=== PATIENT | female | born 1950 | race Caucasian/White ===

== ENCOUNTER 2016-09-23 19:56 | Inpatient (IN) | payer MEDICARE ==
[2016-09-23] MEDS ORDERED: ONDANSETRON HCL INJ/PF 4 MG/2 ML SDV IV ONE (20:16)
[2016-09-23] MEDS ORDERED: FAMOTIDINE INJ/PF 20 MG/2 ML SDV IV ONE (20:16)
--- NOTE | 2016-09-23 20:19 | ER Document Report ---
ED GI/ - General Stated Complaint: NAUSEA,VOMITING,WEAKNESS Time seen by provider: 20:16 Mode of Arrival: Medic Information source: Patient, Relative - - HPI Patient complains to provider of: Abdominal pain, Diarrhea, Vomiting Onset: Yesterday Timing/Duration: Gradual, Persistent, Worse Quality of pain: Achy Severity at maximum: Moderate Severity in ED: Moderate Pain Level: 3 Location: Other - Diffuse Associated symptoms: Chills, Diarrhea, Lightheaded, Nausea, Vomiting Exacerbated by: Denies Relieved by: Denies Similar symptoms previously: No Recently seen / treated by doctor: No Notes: 09/23/16 20:17 Patient is a 66-year-old female who is visiting from [place] who presents to the emergency room via EMS for generalized weakness, nausea, vomiting and diarrhea, with decreased responsiveness and hypotension on arrival, patient reports diffuse abdominal pain and tenderness, no sick contacts, no questionable food intake, no fevers, no dysuria, denies blood in stool or vomit , symptoms started yesterday - Related Data Allergies/Adverse Reactions: Sulfa (Sulfonamide Antibiotics) Allergy (Verified 09/23/16 22:32) Past Medical History - General Information source: Patient, Relative - Social History Smoking Status: Former Smoker Family History: Reviewed & Not Pertinent Review of Systems - Review of Systems Constitutional: See HPI EENT: No symptoms reported Cardiovascular: No symptoms reported Respiratory: No symptoms reported Gastrointestinal: See HPI Genitourinary: No symptoms reported Female Genitourinary: No symptoms reported Musculoskeletal: No symptoms reported Skin: No symptoms reported Hematologic/Lymphatic: No symptoms reported Neurological/Psychological: No symptoms reported -: Yes All other systems reviewed and negative Physical Exam - Vital signs Vitals: Resp BP Pulse Ox 27 H 116/58 L 93 09/23/16 20:39 09/23/16 20:39 09/23/16 20:39 Interpretation: Hypotensive, Hypoxic - General General appearance: Alert In distress: Moderate - HEENT Head: Normocephalic, Atraumatic Eyes: Normal Conjunctiva: Normal Extraocular movements intact: Yes Eyelashes: Normal Pupils: PERRL Mucous membranes: Dry - Respiratory Respiratory status: No respiratory distress Chest status: Nontender Breath sounds: Normal Chest palpation: Normal - Cardiovascular Rhythm: Regular Heart sounds: Normal auscultation Murmur: No - Abdominal Inspection: Normal Distension: Distended Bowel sounds: Normal Tenderness: Tender - Diffuse Organomegaly: No organomegaly - Back Back: Normal, Nontender - Extremities General upper extremity: Normal inspection, Nontender, Normal color, Normal ROM , Normal temperature General lower extremity: Normal inspection, Nontender, Normal color, Normal ROM , Normal temperature. No: Jazmyn's sign - Neurological Neuro grossly intact: Yes Cognition: Normal Orientation: AAOx4 Aurora Coma Scale Eye Opening: Spontaneous Jhony Coma Scale Verbal: Oriented Aurora Coma Scale Motor: Obeys Commands Aurora Coma Scale Total: 15 Speech: Normal Motor strength normal: LUE, RUE, LLE, RLE Sensory: Normal - Psychological Associated symptoms: Normal affect, Normal mood - Skin Skin Temperature: Warm Skin Moisture: Dry Skin Color: Pale Course - Re-evaluation Re-evalutation: 09/24/16 04:15 Patient is resting comfortably, she reports having some crampy abdominal pain, blood pressure has been trending downward slightly, additional IV fluids have been ordered, she does report that she sleeps with a C Pap machine regularly for sleep apnea, therefore BiPAP has been ordered, patient has been discussed with the hospitalist who agrees to admit for further evaluation and treatment 09/24/16 05:50 Patient condition continued to deteriorate, lab values are actually worsened than previous, she is once again hypotensive, tachycardic and spot, surgical evaluation, central line placement 09/24/16 06:00 I was able to reach patient's Lukas, to let him know that patient's condition had deteriorated, he will come to the emergency room/hospital - Vital Signs Vital signs: Temp Pulse Resp BP Pulse Ox 97.2 F 90 27 H 88/23 L 96 09/23/16 21:57 09/23/16 23:41 09/24/16 04:32 09/24/16 04:32 09/24/16 05:58 - Laboratory Result Diagrams: 09/23/16 20:54 09/24/16 03:58 Laboratory results interpreted by me: 09/23/16 09/23/16 09/24/16 20:54 20:54 01:30 Hgb 10.7 L MCV 70 L MCH 20.3 L MCHC 29.1 L RDW 19.3 H VBG pH VBG HCO3 Chloride 110 H Carbon Dioxide 14 L BUN 54 H Creatinine 2.35 H Est GFR ( Amer) 25 L Est GFR (Non-Af Amer) 21 L Glucose 154 H Magnesium Total Bilirubin Direct Bilirubin AST 90 H ALT 56 H Alkaline Phosphatase 335 H Creatine Kinase CK-MB (CK-2) Total Protein 5.8 L Albumin 2.7 L Urine Protein 100 H Urine Glucose (UA) 50 H Urine Ketones TRACE H 09/24/16 09/24/16 09/24/16 03:58 03:58 03:58 Hgb MCV MCH MCHC RDW VBG pH 7.07 L* VBG HCO3 11.6 L Chloride 113 H Carbon Dioxide 12 L BUN 59 H Creatinine 2.89 H Est GFR ( Amer) 20 L Est GFR (Non-Af Amer) 16 L Glucose 111 H Magnesium 3.0 H Total Bilirubin 2.6 H Direct Bilirubin 0.4 H AST 178 H ALT 177 H Alkaline Phosphatase 406 H Creatine Kinase 332 H CK-MB (CK-2) 13.60 H Total Protein 5.1 L Albumin 2.3 L Urine Protein Urine Glucose (UA) Urine Ketones - Diagnostic Test Radiology reviewed: Image reviewed, Reports reviewed - EKG Interpretation by Mi EKG shows normal: Sinus rhythm Rate: Normal Rhythm: NSR - Consults Dr Moss Time consulted: 05:08 Reason for consultation: 09/24/16 05:08 elevated liver enzymes, abdominal pain, sepsis Consulted provider: will come to ER - Transfer of Care Care transferred to following provider: Dr. Cooper Procedures - Intubation Orotracheal Time of Intubation: 05:53 Airway evaluation: Neck immobility Mallampati Classification: Class 3 Medications: Etomidate, Succinylcholine Intubation method: Orotracheal Equipment used: Glidescope ETT size: 7.5 ETT secured at: Teeth ETT secured at (cm): 24 Breath Sounds after Intubation: Equal End tidal CO2 confirmed: Yes Post Intubation Xray: Yes Intubation Complications: No complications Notes: 09/24/16 05:58 initial attampt unsuccessful, second attempt successful by Dr Packer Critical Care Note - Critical Care Note Total time excluding time spent on procedures (mins): 120 Comments: Patient with hypotension, requiring IV fluids, multiple re-evaluations and admission to the ICU Discharge - Discharge Clinical Impression: Nausea vomiting and diarrhea, Elevated liver enzymes, Gallstones Acute renal failure Qualifiers: Acute renal failure type: unspecified Qualified Code(s): N17.9 - Acute kidney failure, unspecified Hypotension Qualifiers: Hypotension type: unspecified hypotension type Qualified Code(s): I95.9 - Hypotension, unspecified Condition: Serious Disposition: ADMITTED INPATIENT Admitting Provider: Hospitalist Unit Admitted: ICU
[2016-09-23] MEDS: NORMAL SALINE 1000 ML 2,000 ML IV PRN (20:36)
[2016-09-23 21:06] LABS: ABSOLUTE LYMPHOCYTES (AUTO) 1.6 10^3/uL (0.5-4.7); ABSOLUTE MONOCYTES (AUTO) 0.7 10^3/uL (0.1-1.4); ABSOLUTE NEUT (AUTO) 5.9 10^3/uL (1.7-8.2); BASOPHILS % (AUTO) 0.2 % (0-2); HEMATOCRIT 36.8 % (36.0-47.0); HEMOGLOBIN 10.7 g/dL (12.0-15.5); LYMPHOCYTES % (AUTO) 19.8 % (13-45); MEAN CORPUSCULAR HEMOGLOBIN 20.3 pg (27.0-33.4); MEAN CORPUSCULAR HGB CONC 29.1 g/dL (32.0-36.0); MEAN CORPUSCULAR VOLUME 70 fl (80-97); MONOCYTES % (AUTO) 8.1 % (3-13); RED BLOOD COUNT 5.28 10^6/uL (3.72-5.28); RED CELL DISTRIBUTION WIDTH 19.3 % (11.5-14.0); SEGMENTED NEUTROPHILS % (AUTO) 71.9 % (42-78); WHITE BLOOD COUNT 8.2 10^3/uL (4.0-10.5)
[2016-09-23 21:27] LABS: ALANINE AMINOTRANSFERASE 56 U/L (9-52); ALBUMIN 2.7 g/dL (3.5-5.0); ALKALINE PHOSPHATASE 335 U/L (38-126); ANION GAP 19 (5-19); ASPARTATE AMINO TRANSFERASE 90 U/L (14-36); BILIRUBIN,TOTAL 1.1 mg/dL (0.2-1.3); BLOOD UREA NITROGEN 54 mg/dL (7-20); CARBON DIOXIDE 14 mmol/L (22-30); CHLORIDE 110 mmol/L (98-107); CREATINE KINASE 99 U/L (30-135); CREATININE RESULT 2.35 mg/dL (0.52-1.25); GLUCOSE 154 mg/dL (75-110); LIPASE 92.6 U/L (23-300); POTASSIUM 4.8 mmol/L (3.6-5.0); SODIUM 142.8 mmol/L (137-145); TOTAL PROTEIN 5.8 g/dL (6.3-8.2)
[2016-09-23 21:29] LABS: HGB HCT DIFFERENCE -4.7
[2016-09-23] MEDS ORDERED: NORMAL SALINE 1000 ML 1,000 ML IV PRN (21:33)
[2016-09-23] MEDS ORDERED: MORPHINE SULFATE 10 MG/ML INJ IV ONE (21:34)
[2016-09-23 21:38] LABS: CREATINE KINASE MB 3.72 ng/mL (<4.55)
[2016-09-23 21:40] LABS: TROPONIN I 0.09 ng/mL
--- NOTE | 2016-09-23 21:47 | EKG REPORT ---
SEVERITY:- ABNORMAL ECG - SINUS RHYTHM PROBABLE LEFT VENTRICULAR HYPERTROPHY : Confirmed by: Golden Rojas 23-Sep-2016 21:45:33
[2016-09-24 01:47] LABS: APPEARANCE,URINE CLOUDY; BILIRUBIN,URINE NEGATIVE (NEGATIVE); GLUCOSE, URINE 50 mg/dL (NEGATIVE); KETONES,URINE TRACE mg/dL (NEGATIVE); LEUKOCYTE ESTERASE,URINE NEGATIVE (NEGATIVE); NITRITE,URINE NEGATIVE (NEGATIVE); PROTEIN,URINE 100 mg/dL (NEGATIVE); URINE SPECIFIC GRAVITY 1.015; UROBILINOGEN,URINE NEGATIVE mg/dL (<2.0)
[2016-09-24] MEDS ORDERED: NORMAL SALINE 1000 ML 1,000 ML IV PRN ×2 (03:46→07:48)
[2016-09-24] MEDS: NORMAL SALINE 1000 ML 2,000 ML IV PRN (03:51)
[2016-09-24] MEDS ORDERED: FENTANYL CITRATE INJ/PF 100 MCG/2 ML AMPUL IV ONE (03:52)
[2016-09-24 04:25] LABS: VENOUS BLOOD BASE EXCESS -17.7 mmol/L; VENOUS BLOOD HCO3 11.6 mmol/L (20-32); VENOUS BLOOD PCO2 40.8 mmHg (35-63)
[2016-09-24 04:26] LABS: VENOUS BLOOD PH 7.07 (7.30-7.42)
[2016-09-24] MEDS ORDERED: SODIUM BICARBONATE 4.2% INJ (2.4 MEQ/5 ML) VIAL INJ ONE (04:30)
[2016-09-24] MEDS ORDERED: SODIUM BICARBONATE 8.4% INJ 50 MEQ/50 ML DISP.SYRIN IV ONE (04:34)
[2016-09-24] MEDS ORDERED: SODIUM BICARBONATE 8.4% INJ 50 MEQ/50 ML DISP.SYRIN ONE (04:35)
[2016-09-24 04:37] LABS: ALANINE AMINOTRANSFERASE 177 U/L (9-52); ALBUMIN 2.3 g/dL (3.5-5.0); ALKALINE PHOSPHATASE 406 U/L (38-126); ASPARTATE AMINO TRANSFERASE 178 U/L (14-36); BILIRUBIN,DIRECT 0.4 mg/dL (0.0-0.3); BILIRUBIN,TOTAL 2.6 mg/dL (0.2-1.3); BLOOD UREA NITROGEN 59 mg/dL (7-20); CALCIUM 8.4 mg/dL (8.4-10.2); CARBON DIOXIDE 12 mmol/L (22-30); CHLORIDE 113 mmol/L (98-107); CREATINE KINASE 332 U/L (30-135); CREATININE RESULT 2.89 mg/dL (0.52-1.25); GLUCOSE 111 mg/dL (75-110); POTASSIUM 4.7 mmol/L (3.6-5.0); TOTAL PROTEIN 5.1 g/dL (6.3-8.2)
[2016-09-24 04:45] LABS: SODIUM 143.6 mmol/L (137-145)
[2016-09-24 04:48] LABS: CREATINE KINASE MB 13.6 ng/mL (<4.55)
[2016-09-24 04:51] LABS: ANION GAP 19 (5-19)
[2016-09-24 04:52] LABS: TROPONIN I 0.141 ng/mL
[2016-09-24] MEDS ORDERED: DEXTROSE 5%-WATER 250 ML with NOREPINEPHRINE BITARTRATE 4 MG IV PRN ×4 (05:06→07:49)
[2016-09-24] MEDS ORDERED: NOREPINEPHRINE BITARTRATE INJ/PF 4 MG/4 ML SDV IV ONE (05:11)
[2016-09-24] MEDS ORDERED: ETOMIDATE INJ/PF 20 MG/10 ML SDV IV ONE ×2 (05:36→05:50)
[2016-09-24] MEDS ORDERED: KETAMINE HCL INJ 500 MG/10 ML VIAL ONE (05:48)
[2016-09-24] MEDS ORDERED: SUCCINYLCHOLINE CHLORIDE INJ 200 MG/10 ML VIAL IV ONE (05:50)
[2016-09-24] MEDS ORDERED: KETAMINE HCL INJ 500 MG/10 ML VIAL IV ONE (05:53)
[2016-09-24] MEDS ORDERED: CEFTRIAXONE 1 GM/D5W RTU 1 GM/50 ML RTUPB IV SCH (06:00)
--- NOTE | 2016-09-24 06:17 | PDOC CONSULTATION ---
Consultation Consult Date: 09/24/16 Attending physician:: BRADLEY TOM Consult reason:: Septic shock History of Present Illness Admission Date/PCP: 09/24/16 04:00 History of Present Illness: THU MATHEW is a 66 year old female who presents to the emergency department complaining of abdominal pain, generalized weakness, diarrhea. She is visiting from [place]. She was evaluated in the emergency department where she was found to have diffuse abdominal tenderness. She was evaluated by the emergency department staff, found to have acidosis as well as elevation of liver function studies. She underwent CT scan of the abdomen and pelvis without IV and oral contrast and this revealed gallstones. Surgery was consulted. Over several hour. In the emergency department patient became progressively hypotensive. She was treated with IV fluids, up to 4 L and required Giovanni- Synephrine for assisting hypertension. Upon surgery's arrival, was determined the patient was in profound septic shock, and needed more aggressive intervention. She was moved to the trauma bay, where she underwent sedation, paralysis oral tracheal intubation and central line placement as well as nasogastric tube insertion. Continue fluid resuscitation was initiated by the scene surgery services. Arrangements were made for her to be transferred to the intensive care unit on the hospital service. Past Medical History Cardiac Medical History: Reports: Hyperlipidema GI Medical History: Reports: Gastroesophageal Reflux Disease Social History Smoking Status: Former Smoker Family History Family History: Reviewed & Not Pertinent Parental Family History Reviewed: No - unable to obtain as patient in septic shock Children Family History Reviewed: NA Sibling(s) Family History Reviewed.: NA Medication/Allergy Allergies/Adverse Reactions: Sulfa (Sulfonamide Antibiotics) Allergy (Verified 09/23/16 22:32) Physical Exam Vital Signs: Temp Pulse Resp BP Pulse Ox 97.2 F 90 27 H 88/23 L 96 09/23/16 21:57 09/23/16 23:41 09/24/16 04:32 09/24/16 04:32 09/24/16 05:58 Intake & Output 09/22/16 09/23/16 09/24/16 06:59 06:59 06:59 Weight 89.5 kg General appearance: PRESENT: other Head exam: PRESENT: normocephalic - Hypotensive, fashion. Eye exam: PRESENT: other - Pupils dilated. Mouth exam: PRESENT: dry mucosa Neck exam: PRESENT: full ROM Cardiovascular exam: PRESENT: other - Tachycardic Pulses: PRESENT: other GI/Abdominal exam: PRESENT: other - Threaded diffusely tender, nonlocalized, hypoactive bowel sounds. Rectal exam: PRESENT: deferred Musculoskeletal exam: PRESENT: other - No gross deformity; extremity still warm. Neurological exam: PRESENT: other - Prior to intubation and was following simple commands. Not carry on conversation. Psychiatric exam: PRESENT: other - Depressed level of consciousness Results Impressions: Limited or Localized CT 09/23/16 21:32 IMPRESSION: 1. PROMINENT STOOL IN THE RECTUM AND PROMINENT FLUID THROUGHOUT THE COLON. FINDINGS COULD BE INDICATIVE OF A FECAL IMPACTION. 2. GALLSTONES. 3. NO OTHER SIGNIFICANT OR ACUTE PROCESS IN THE ABDOMEN OR PELVIS. Status: Imported from PACS Assessment & Plan - Diagnosis (1) Septic shock Is this a current diagnosis for this admission?: YesPlan: 1. Patient remains in septic shock despite aggressive fluid and now vasopressor initiation. I have suggested broad-spectrum intravenous antibiotics. 2. Patient is found to have gallstones on CT scan of the abdomen. There is no evidence of lumen, pericholecystic fluid,. Cholecystic inflammation. CT scan is limited due to absence of IV and oral contrast. The exact etiology of her sepsis is undetermined. I do not believe emergent cholecystectomy, or cholecystostomy tube is indicated. 3. We'll follow closely in a consulting capacity with the hospitalist service. Patient's prognosis is guarded. - Time Time Spent: 50 to 70 Minutes Critical Time spent with patient: 15-24 minutes
--- NOTE | 2016-09-24 06:21 | Operative Report ---
Operative Report DATE OF SURGERY: 09/24/16 PREOPERATIVE DIAGNOSIS: Septic shock POSTOPERATIVE DIAGNOSIS: Septic shock OPERATION: 1. Insertion of nasogastric tube. 2. Insertion of right subclavian triple-lumen central venous access catheter. 3. Interpretation of portable upright chest x-ray SURGEON: EDMUNDO VERDE ANESTHESIA: Local TISSUE REMOVED OR ALTERED: None COMPLICATIONS: None ESTIMATED BLOOD LOSS: scant INTRAOPERATIVE FINDINGS: See below PROCEDURE: Patient was evaluated in emergency room 1, then transferred to the trauma bay. Under emergent conditions, patient underwent oral tracheal intubation by the emergency department staff S of respiratory failure The patient was placed in Trendelenburg the right subclavian area was exposed , prepped and draped in a sterile fashion. Surgical plan and surgical timeout discussed. The right subclavian area was anesthetized with 1% lidocaine without epinephrine. An 18-gauge needle and wire were threaded into the right subclavian vein. The tract was dilated up, the dilator removed, and the triple- lumen central venous access catheter was threaded into the right subclavian vein uneventfully to the hub. There was excellent aspiration and flush of saline through all 3 lumens. The catheter was affixed to the skin with a Biopatch and 2-0 silk suture; sterile dressing applied. The patient tolerated the procedure well. There were no complications. The left nares was examined, and palpated with a pinky finger, lubricated. A warm 18 Malay nasogastric tube was inserted uneventfully up to 60 cm. Instillation of air confirmed gas in the stomach. The nasogastric tube was secured to the nasal bridge. Portable semi-upright chest x-ray showed lung perez, tracheal and nasogastric tubes in satisfactory position.
[2016-09-24] MEDS ORDERED: PIPERACILLIN/TAZOBACTAM 2.25 GM VIAL IV ONE (06:22)
[2016-09-24 06:50] LABS: ADD ON TESTING BLD IN LAB ACKNOWLEDGE
[2016-09-24 07:13] LABS: PHOSPHORUS 6.6 mg/dL (2.5-4.5)
[2016-09-24] MEDS ORDERED: PROPOFOL 0 ML IV ONE ×2 (07:21→07:22)
[2016-09-24] MEDS ORDERED: NORMAL SALINE 1000 ML 3,000 ML IV ONE (07:40)
[2016-09-24] MEDS ORDERED: PROPOFOL INJ 200 MG/20 ML VIAL IV ONE (07:41)
[2016-09-24] MEDS ORDERED: PHARMACY COMMUNICATION ORDER MC SCH (07:45)
[2016-09-24] MEDS ORDERED: MIDAZOLAM HCL 100 ML IV PRN (08:23)
[2016-09-24 08:34] LABS: PARTIAL THROMBOPLASTIN TIME 50.8 SEC (23.5-35.8)
[2016-09-24 08:36] LABS: ABSOLUTE LYMPHOCYTES (AUTO) 1.2 10^3/uL (0.5-4.7); ABSOLUTE MONOCYTES (AUTO) 0.2 10^3/uL (0.1-1.4); ABSOLUTE NEUT (AUTO) 2.3 10^3/uL (1.7-8.2); BASOPHILS % (AUTO) 0.2 % (0-2); EOSINOPHILS % (AUTO) 0.5 % (0-6); HEMATOCRIT 32.8 % (36.0-47.0); HEMOGLOBIN 9.5 g/dL (12.0-15.5); LYMPHOCYTES % (AUTO) 32.6 % (13-45); MEAN CORPUSCULAR HEMOGLOBIN 20.4 pg (27.0-33.4); MEAN CORPUSCULAR HGB CONC 28.9 g/dL (32.0-36.0); MEAN CORPUSCULAR VOLUME 71 fl (80-97); RED BLOOD COUNT 4.65 10^6/uL (3.72-5.28); RED CELL DISTRIBUTION WIDTH 19.1 % (11.5-14.0); SEGMENTED NEUTROPHILS % (AUTO) 61.7 % (42-78); WHITE BLOOD COUNT 3.7 10^3/uL (4.0-10.5)
[2016-09-24 08:48] LABS: HGB HCT DIFFERENCE -4.3
[2016-09-24 08:51] LABS: ANION GAP 18 (5-19); BLOOD UREA NITROGEN 64 mg/dL (7-20); CALCIUM 7.5 mg/dL (8.4-10.2); CARBON DIOXIDE 11 mmol/L (22-30); CHLORIDE 117 mmol/L (98-107); CREATINE KINASE 455 U/L (30-135); CREATININE RESULT 3.07 mg/dL (0.52-1.25); GLUCOSE 108 mg/dL (75-110); POTASSIUM 4.1 mmol/L (3.6-5.0); SODIUM 145.6 mmol/L (137-145)
[2016-09-24] MEDS ORDERED: DEXTROSE 5%-LACTATED RINGERS 1,000 ML IV ONE (08:51)
--- NOTE | 2016-09-24 08:55 | PDOC H&P ---
History of Present Illness Admission Date/PCP: 09/24/16 04:00 OOT; pt. visiting from [place] Patient complains of: abd pain, n/v, diarrhea History of Present Illness: 66-year-old female, with underlying asthma, COPD, obstructive sleep apnea, on CPAP for same, hyperlipidemia, mild anxiety and depression, without suicidal or homicidal ideation, arthritis, and esophageal reflux disease, along with history cranial marianna holes, 2014, for ruptured intracerebral aneurysm, who presents to the emergency room for evaluation of a 2 to three-day history of progressive nausea vomiting, diarrhea and abdominal pain. Patient has been discussed with emergency room physician who evaluated the patient. Patient is intubated and is able to provide no history whatsoever in terms of acute or chronic events, review of systems, personal habits, family history, etc. is present and is helpful and informative. No old inpatient records available for review; patient has never been to this hospital before. Patient and are down from [place] visiting their son who is about to deploy in the [employer]. Had a constitution party for their son on Friday. Following day patient was fine, but when returned from seeing his son off on Friday, patient was complaining of nausea and vomiting. On Friday, nausea and vomiting worsened, along with onset of diarrhea and diffuse abdominal pain. No prior such episodes. No unusual oral intake. No friends or family with similar complaints. No fever or chills or dysuria. No history of C. difficile. No antibiotic use. Patient initially seemed to improve in the emergency room with IV fluids. However, she began to worsen clinically and when repeat labs revealed multiple worsening values, including BUN and creatinine, along with liver functions and prominent acidosis noted on blood gas, patient was intubated. Levophed has been started. . Laboratory results are listed in [facility] and are reviewed. X-ray summary results are listed below, with full report(s) reviewed. . EKG reviewed. No old EKG available for comparison. Social history/personal habits: Lives with . 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 Occasional alcohol. No illicit drug use. Allergies/adverse reactions are listed in [facility] and are reviewed. Home medications are reviewed from a hand written list provided by and are to be reconciled [facility] nursing staff [facility]. Home medications initially autopopulated into [facility] may not accurately reflect patient's true medications, dosages, and/or frequencies. Compliant with medications. No recent medication changes. REVIEW OF SYSTEMS: See history and present illness.No further information available this point in time. PHYSICAL EXAMINATION: 5 feet 5 inches tall. 89.5 kg. BMI 32.8 kg/m. Blood pressure 120/51, with patient on Levophed drip at 12 mcg/m. Pulse 99 and regular. 94% saturation on SIMV volume control 100% FiO2 PEEP of 5, rate of 24, tidal volume 500. is present at her side. Slightly obese otherwise well-developed female who appears perhaps a bit younger than her stated age. Intubated. Does open eyes slightly when name is called, and does move feet slightly to request. Of note, sedation has not been started at this point due to low blood pressure. Skin is warm and dry. No grossly obvious evidence of rash in areas of skin examined. No subcutaneous nodules palpated. ENT: Hearing can't Be adequately evaluated due to her current status. Eyes: No scleral icterus. Pupils equal and reactive to light at 7 mm. [place] conjunctivae. Neck is gentle palpation. Midline trachea. No palpable thyroid nodule mass enlargement or tenderness. Lymphatic: No palpable cervical or clavicular nodes. Neck and lymphatic exams limited by patient body habitus. Exam slightly limited by endotracheal tube with attaching straps. Psychiatric: Can't be adequately evaluated due to her current status. Lungs: Auscultation reveals clear and equal breath sounds bilaterally. No use of accessory respiratory muscles. Cardiovascular: Heart regular rate and rhythm, without gallop murmur or rub. No carotid or abdominal aortic bruits. No ankle or pedal edema. Faintly palpable dorsalis pedis pulses. Abdomen: soft, somewhat obese, slightly distended quiet, with diffuse generalized tenderness, and possible guarding. Unable to adequately evaluate abdomen for masses or organomegaly due to body habitus, distention, and tenderness. Extremities: Feet are cool but dry, with quite acceptable capillary refill in toes. No calf tenderness to compression. No grossly obvious visual evidence of calf swelling. Gentle manipulation of lower extremities fails to reveal any obvious evidence of injury or instability to knees hips or ankles. Neurologic: Patellar reflexes absent. Absent Babinski. Light touch can't be adequately evaluated due to her current status. Moves feet slightly symmetrically to request. Past Medical History Cardiac Medical History: Reports: Hyperlipidema, Hypertension Denies: Atrial Fibrillation, Congestive Heart Failure, DVT, Myocardial Infarction, Pulmonary Embolism Pulmonary Medical History: Reports: Asthma, Chronic Obstructive Pulmonary Disease (COPD), Sleep Apnea - On CPAP for same EENT Medical History: Reports: Eyes - Glasses Denies: Ears, Throat Neurological Medical History: Reports: Other - Bur holes placed for ruptured intracerebral aneurysm, 2013. Denies: Hemorrhagic CVA, Ischemic CVA, Seizures Endocrine Medical History: Denies: Diabetes Mellitus Type 1, Diabetes Mellitus Type 2, Hyperthyroidism, Hypothyroidism Renal/ Medical History: Reports: None Malignancy Medical History: Reports: Skin Cancer - Melanoma, status post left groin lymphadenectomy, 1998. GI Medical History: Reports: Gastroesophageal Reflux Disease Denies: Cirrhosis, Hepatitis Musculoskeltal Medical History: Reports: Arthritis Skin Medical History: Reports: Other - History of melanoma, left lower extremity Psychiatric Medical History: Reports: Depression, General Anxiety Disorder Denies: Alcohol Dependency, Substance Abuse, Tobacco Dependency Hematology: Reports: None Infectious Medical History: Denies: Clostridium Difficile, Hepatitis B, Hepatitis C, Methicillin- Resistant Staph Aureus Past Surgical History Past Surgical History: Reports: Other - groin lymphadenectomy, for melanoma, leg. marianna holes, 2013, [facility] Social History Information Source: POA - Power of Hat And Cap Opener, Emergency Med Personnel, [facility] Records Lives with: Spouse/Significant other Smoking Status: Former Smoker Frequency of Alcohol Use: Occasional Drugs: None - Advance Directive Resuscitation Status: Full Code Surrogate healthcare decision maker:: Family History Family History: Other - Congestive heart failure Parental Family History Reviewed: Yes Children Family History Reviewed: Yes Sibling(s) Family History Reviewed.: Yes Medication/Allergy Allergies/Adverse Reactions: Sulfa (Sulfonamide Antibiotics) Allergy (Verified 09/23/16 22:32) Physical Exam Vital Signs: Temp Pulse Resp BP Pulse Ox 100.8 F H 90 33 H 91/73 L 96 09/24/16 07:49 09/23/16 23:41 09/24/16 07:49 09/24/16 07:49 09/24/16 07:48 Intake & Output 09/23/16 09/24/16 09/25/16 00:59 00:59 00:59 Weight 89.5 kg Results Impressions: Limited or Localized CT 09/23/16 21:32 IMPRESSION: 1. PROMINENT STOOL IN THE RECTUM AND PROMINENT FLUID THROUGHOUT THE COLON. FINDINGS COULD BE INDICATIVE OF A FECAL IMPACTION. 2. GALLSTONES. 3. NO OTHER SIGNIFICANT OR ACUTE PROCESS IN THE ABDOMEN OR PELVIS. Chest X-Ray 09/24/16 05:56 IMPRESSION: Tubes and lines in good positioning Pulmonary vascular prominence with increased interstitial markings from fluid overload or congestive failure Assessment & Plan - Diagnosis (1) Abdominal pain, generalized Is this a current diagnosis for this admission?: YesPlan: Worrisome for possible intra-abdominal problem, such as ischemic bowel. Discussed with Dr. Carter, on-call general surgeon, who will evaluate patient. (2) Acute renal failure Qualifiers: Acute renal failure type: unspecified Qualified Code(s): N17.9 - Acute kidney failure, unspecified Is this a current diagnosis for this admission?: YesPlan: Likely at least partially prerenal, due to nausea vomiting and diarrhea. No evidence of obstruction on CT scan. Vigorous IV fluid hydration. Follow-up chemistry. (3) Acute respiratory failure Qualifiers: Respiratory failure complication: unspecified whether with hypoxia or hypercapnia Qualified Code(s): J96.00 - Acute respiratory failure, unspecified whether with hypoxia or hypercapnia Is this a current diagnosis for this admission?: Yes (4) Elevated liver enzymes Is this a current diagnosis for this admission?: YesPlan: Possibly due to septic shock. No underlying biliary disease. Occasional alcohol, but not much or very often. Repeat chemistry. (5) Gallstones Is this a current diagnosis for this admission?: YesPlan: Per Dr. Moss, initial evaluating surgeon, no need for treatment of same at present time. (6) Respiratory failure requiring intubation Is this a current diagnosis for this admission?: Yes (7) Septic shock Is this a current diagnosis for this admission?: YesPlan: Possibly due at least partly to urinary tract infection, but overall picture worrisome for more complicated issue, such as ischemic bowel. Antibiotic will consist of Zosyn, with pharmacy to assist with dosing. Knee high SCDs for DVT prophylaxis, along with subcutaneous heparin. IV Pepcid, adjusted for renal status, for gastritis prophylaxis. Discussed in detail with daytime hospitalist team. Impression and plans were discussed with , who concurs. I discussed with him in layperson's terms that patient is extremely sick. Time spent in evaluation and management of patient: 70 critical care minutes. (8) UTI (urinary tract infection) Qualifiers: Urinary tract infection type: site unspecified Is this a current diagnosis for this admission?: Yes - Inpatient Certification Based on my medical assessment, after consideration of the patient's comorbidities, presenting symptoms, or acuity I expect that the services needed warrant INPATIENT care.: Yes I certify that my determination is in accordance with my understanding of Medicare's requirements for reasonable and necessary INPATIENT services [42 CFR 412.3e].: Yes Medical Necessity: Need Close Monitoring Due to Risk of Patient Decompensation, Need For IV Fluids, Need For Continuous Telemetry Monitoring, Need for IV Antibiotics, Risk of Diagnosis Which Will Require Inpatient Eval/Care/Monitoring Post Hospital Care: D/C or Transfer Summary
[2016-09-24 09:01] LABS: CREATINE KINASE MB 20.2 ng/mL (<4.55); TROPONIN I 0.146 ng/mL
--- NOTE | 2016-09-24 09:25 | PDOC PROGRESS REPORT ---
Subjective Subjective:: 66-year-old white female, down with her of 19 years visiting his son who assumed place at the . Her normal pattern is sleeping during the day. She goes to bed at 3 a.m. and wakes for supper. She's been trying to wake early on vacation, approximate 10 AM. On Friday, her and laquitaon were planning a day trip to [place]. She said she felt poorly and did not want to go. When they returned at 10 PM, she reported she had slept most of the day and had nauseated and vomiting and had loss of appetite. She ate only a bowl of cereal. She was awake a good portion of Friday night/Friday morning with nausea and vomiting. Friday she spent a good portion of the day in bed. She had diarrhea and felt weaker throughout the day. At 6 PM her called 911. At 8 PM they arrived at the emergency room. He reports she has had EGD and colonoscopy. He believes she had history of an ulcer. She avoids NSAIDs for that reason. She takes Tylenol and a baby aspirin daily. She has a long history of chronic constipation or she will not have a bowel movement for several days. She has chronic lightheaded and dizziness. She has arthritis. She may have had previous CA per her . She has anxiety, depression, hyperlipidemia, hypertension, borderline diabetes, emphysema, asthma, history of smoking but quit 30 years ago. She drinks half a shot of Kahla in a mixed drink each day. Report from the off going surgicalist and emergency room reveal hypotension. He also reports a distended and tender but not peritoneal abdomen. She is on a pressor, she is intubated, she received a central line, she has received 4 or 5 units of crystalloid thus far. Past medical history: Hypertension, hyperlipidemia, emphysema, asthma, depression, anxiety, chronic constipation, arthritis, borderline diabetes, history of brain aneurysm in 2013, history of melanoma on the left calf in 1998 with a pelvic lymph node removal. Remote history of smoking, quit 30 years ago. Possible history of CA, possible history of peptic ulcer disease. Past surgical history: EGD, colonoscopy, pelvic lymph node removal in 1998, left calf melanoma removal, marianna hole for aneurysm in 2013. Allergies: Sulfa Social history: to current 19 years. Quit smoking 30 years ago. Half a shot of Kahla in 1 drink daily. No recreational drug use. Family history: No significant family history. Estranged son. Sister with multiple health ailments. Physical Exam Vital Signs: Temp Pulse Resp BP Pulse Ox 101.4 F H 90 35 H 125/60 95 09/24/16 08:52 09/23/16 23:41 09/24/16 08:52 09/24/16 08:52 09/24/16 08:52 Intake & Output 09/23/16 09/24/16 09/25/16 06:59 06:59 06:59 Weight 89.5 kg General appearance: PRESENT: other - Intubated, mildly sedated, but opens eyes to commands and when spoken to and makes minimal response. Head exam: PRESENT: normocephalic, other - ET tube in place. NG tube with gastric fluid. No blood, no bilious. Eye exam: PRESENT: EOMI Neck exam: ABSENT: JVD, lymphadenopathy, tenderness, thyromegaly Respiratory exam: PRESENT: clear to auscultation poli Cardiovascular exam: PRESENT: RRR, tachycardia GI/Abdominal exam: PRESENT: distended, soft, tenderness - Distended. Mild to moderately tender to palpation diffusely. No apparent guarding or rebound.. ABSENT: guarding, rebound Rectal exam: PRESENT: normal rectal tone, other - Brown formed stool and brown liquid stool in the rectal vault. No fecal impaction. No masses. No bloody stools/melanotic stool.. ABSENT: black stool, bloody stool, decreased rectal tone, fecal impaction, mass Extremities exam: PRESENT: other - Minimal I lateral lower extremity edema which says is her baseline.. ABSENT: tenderness Musculoskeletal exam: ABSENT: deformity Neurological exam: PRESENT: other - Intubated, mildly sedated Skin exam: PRESENT: other - No rash. No jaundice. Well-healed scar in her left groin consistent with her history of pelvic lymph node excision.. ABSENT: jaundice, rash Results Laboratory Results: 09/24/16 08:14 09/24/16 08:14 09/24/16 09/24/16 08:14 08:14 WBC 3.7 L RBC 4.65 Hgb 9.5 L Hct 32.8 L MCV 71 L MCH 20.4 L MCHC 28.9 L RDW 19.1 H Plt Count 235 Seg Neutrophils % 61.7 Lymphocytes % 32.6 Monocytes % 5.0 Eosinophils % 0.5 Basophils % 0.2 Absolute Neutrophils 2.3 Absolute Lymphocytes 1.2 Absolute Monocytes 0.2 Absolute Eosinophils 0.0 Absolute Basophils 0.0 Sodium 145.6 H Potassium 4.1 Chloride 117 H Carbon Dioxide 11 L Anion Gap 18 BUN 64 H Creatinine 3.07 H Est GFR ( Amer) 18 L Est GFR (Non-Af Amer) 15 L Glucose 108 Calcium 7.5 L 09/24/16 09/24/16 08:14 08:14 Creatine Kinase 455 H CK-MB (CK-2) 20.20 H Troponin I 0.146 Impressions: Limited or Localized CT 09/23/16 21:32 IMPRESSION: 1. PROMINENT STOOL IN THE RECTUM AND PROMINENT FLUID THROUGHOUT THE COLON. FINDINGS COULD BE INDICATIVE OF A FECAL IMPACTION. 2. GALLSTONES. 3. NO OTHER SIGNIFICANT OR ACUTE PROCESS IN THE ABDOMEN OR PELVIS. Chest X-Ray 09/24/16 05:56 IMPRESSION: Tubes and lines in good positioning Pulmonary vascular prominence with increased interstitial markings from fluid overload or congestive failure Assessment & Plan - Diagnosis (1) Emphysema of lung Is this a current diagnosis for this admission?: Yes (2) Abdominal pain, generalized Is this a current diagnosis for this admission?: Yes (3) Elevated liver enzymes Is this a current diagnosis for this admission?: Yes (4) Gallstones Is this a current diagnosis for this admission?: Yes (5) Nausea vomiting and diarrhea Is this a current diagnosis for this admission?: YesPlan: She is distended and moderately tender, but peritoneal. Although she is intubated and mildly sedated, she still opens her eyes and responds appropriately where I feel her abdominal exam is accurate. Her NG tube output is benign. Her rectal exam was benign. She is making some dark urine, but her BUN and creatinine indicates she is under resuscitated. Recommend continue aggressive fluid resuscitation, wean pressors as able, start IV Protonix 40 mg twice a day. Critically ill patient. At this point I do not believe she has a surgical abdomen. We will continue to follow. (6) Respiratory failure requiring intubation Is this a current diagnosis for this admission?: Yes (7) Septic shock Is this a current diagnosis for this admission?: Yes (8) UTI (urinary tract infection) Qualifiers: Urinary tract infection type: site unspecified Is this a current diagnosis for this admission?: Yes (9) Asthma Is this a current diagnosis for this admission?: Yes
[2016-09-24] MEDS: IPRATROPIUM/ALBUTEROL 0.5-2.5 MG/3 ML AMPUL NEB SCH ×3 (09:43→19:34)
[2016-09-24] MEDS ORDERED: PANTOPRAZOLE SODIUM 40 MG VIAL IV SCH (10:00)
[2016-09-24] MEDS ORDERED: FAMOTIDINE INJ/PF 20 MG/2 ML SDV IV SCH (10:00)
[2016-09-24] MEDS ORDERED: HEPARIN SOD (PORCINE) 5,000 UNIT/ML 1 ML SYRINGE SUBCUT SCH (10:00)
[2016-09-24] MEDS ORDERED: PROPOFOL 100 ML IV ONE (10:15)
[2016-09-24] MEDS ORDERED: SUCCINYLCHOLINE CHLORIDE INJ 200 MG/10 ML VIAL ONE (10:23)
[2016-09-24] MEDS ORDERED: PROPOFOL 100 ML IV PRN (10:39)
--- NOTE | 2016-09-24 10:40 | PDOC PROGRESS REPORT ---
Subjective Progress Note for:: 09/24/16 Subjective:: Patient is intubated and sedated Physical Exam Vital Signs: Temp Pulse Resp BP Pulse Ox 101.4 F H 90 35 H 125/60 95 09/24/16 08:52 09/23/16 23:41 09/24/16 08:52 09/24/16 08:52 09/24/16 08:52 Head exam: PRESENT: atraumatic, normocephalic Eye exam: PRESENT: conjunctiva pink. ABSENT: scleral icterus Mouth exam: PRESENT: moist, tongue midline, other - ET tube in place Neck exam: ABSENT: carotid bruit, JVD, thyromegaly, tracheal deviation Respiratory exam: PRESENT: clear to auscultation poli. ABSENT: rales, rhonchi, wheezes Cardiovascular exam: PRESENT: tachycardia. ABSENT: diastolic murmur, rubs, systolic murmur GI/Abdominal exam: PRESENT: normal bowel sounds, soft. ABSENT: distended, guarding, mass, organolmegaly, rebound, tenderness Extremities exam: PRESENT: pedal edema - Trace pedal edema.. ABSENT: calf tenderness, clubbing Neurological exam: PRESENT: other - Intubated and sedated. Psychiatric exam: PRESENT: other - Unable to assess Skin exam: PRESENT: dry, intact, warm. ABSENT: cyanosis, rash Results Laboratory Results: 09/24/16 08:14 09/24/16 08:14 09/24/16 09/24/16 08:14 08:14 WBC 3.7 L RBC 4.65 Hgb 9.5 L Hct 32.8 L MCV 71 L MCH 20.4 L MCHC 28.9 L RDW 19.1 H Plt Count 235 Seg Neutrophils % 61.7 Lymphocytes % 32.6 Monocytes % 5.0 Eosinophils % 0.5 Basophils % 0.2 Absolute Neutrophils 2.3 Absolute Lymphocytes 1.2 Absolute Monocytes 0.2 Absolute Eosinophils 0.0 Absolute Basophils 0.0 Sodium 145.6 H Potassium 4.1 Chloride 117 H Carbon Dioxide 11 L Anion Gap 18 BUN 64 H Creatinine 3.07 H Est GFR ( Amer) 18 L Est GFR (Non-Af Amer) 15 L Glucose 108 Calcium 7.5 L 09/24/16 09/24/16 08:14 08:14 Creatine Kinase 455 H CK-MB (CK-2) 20.20 H Troponin I 0.146 Impressions: Limited or Localized CT 09/23/16 21:32 IMPRESSION: 1. PROMINENT STOOL IN THE RECTUM AND PROMINENT FLUID THROUGHOUT THE COLON. FINDINGS COULD BE INDICATIVE OF A FECAL IMPACTION. 2. GALLSTONES. 3. NO OTHER SIGNIFICANT OR ACUTE PROCESS IN THE ABDOMEN OR PELVIS. Chest X-Ray 09/24/16 05:56 IMPRESSION: Tubes and lines in good positioning Pulmonary vascular prominence with increased interstitial markings from fluid overload or congestive failure Assessment & Plan - Diagnosis (1) Respiratory failure requiring intubation Is this a current diagnosis for this admission?: YesPlan: Patient has had worsening of her respiratory status requiring intubation because of hypotension and sepsis. Chest x-ray is suggestive of volume overload however she appears to be volume depleted. She has received a good bit of IV fluids with resuscitation. We'll consult cardiology to get their opinion regarding her volume status. Pulmonary medicine is not available for consultation at this time. (2) Septic shock Is this a current diagnosis for this admission?: YesPlan: Most likely sources a urinary tract infection. She does have gallstones but does not have any obvious biliary dilatation and her transaminases are only up slightly. Given her hypotension a random cortisol level has been ordered to make certain she does not have any obvious adrenal insufficiency related to her hypotension. (3) UTI (urinary tract infection) Qualifiers: Urinary tract infection type: site unspecified Is this a current diagnosis for this admission?: YesPlan: Patient is currently on Zosyn. Cultures have been obtained. (4) Elevated liver enzymes Is this a current diagnosis for this admission?: YesPlan: The increasing liver enzymes may be related to her septic shock. She does have gallstones however. Patient has been evaluated by surgery in the did not feel she has a surgical abdomen at this time. The case was discussed with Dr. Carter (5) Emphysema of lung Is this a current diagnosis for this admission?: YesPlan: Patient has no wheezing on exam currently. (6) Gallstones Is this a current diagnosis for this admission?: Yes (7) COPD (chronic obstructive pulmonary disease) Is this a current diagnosis for this admission?: YesPlan: No evidence for wheezing at this time. (8) Elevated troponin level Is this a current diagnosis for this admission?: YesPlan: Cardiology has been consulted. It's most likely related to her underlying septic shock. - Time Critical Time spent with patient: 15-24 minutes - Inpatient Certification Medical Necessity: Need Close Monitoring Due to Risk of Patient Decompensation, Need for IV Antibiotics
[2016-09-24 10:48] LABS: ARTERIAL BLOOD BASE EXCESS -16.1 mmol/L; ARTERIAL BLOOD O2 SATURATION 99.7 % (94-98)
[2016-09-24] MEDS ORDERED: RINGERS SOLUTION,LACTATED 1,000 ML IV ONE (11:30)
[2016-09-24] MEDS ORDERED: PIPERACILLIN SODIUM/TAZOBACTAM 2.25 GM in NORMAL SALINE 50 ML IV SCH (12:00)
[2016-09-24] MEDS ORDERED: PIPERACILLIN SODIUM/TAZOBACTAM 4.5 GM in NORMAL SALINE 100 ML IV SCH (12:00)
[2016-09-24] MEDS ORDERED: DEXTROSE 5%-WATER 250 ML with PHENYLEPHRINE HCL 40 MG IV PRN ×2 (12:31)
--- NOTE | 2016-09-24 12:34 | XCELERA REPORT ---
[address] [address] Transthoracic Echocardiogram Report Name: THU MATHEW Age: 66 yrs Gender: Female : 1950 Patient Status: Inpatient Patient Location: ICU\S\602\S\A Study Date: 09/24/2016 12:00 PM Height: 65 in Weight: 197 lb BSA: 2.0 m2 Procedure: A complete two-dimensional transthoracic echocardiogram was performed (2D, M-mode, spectral and color flow Doppler). The study was technically difficult with many images being suboptimal in quality. Reason For Study: Positive Cardiac Enzymes/ Hypotension Ordering Physician: GOLDEN MCNAIR Performed By: Ayaka Jeong Interpretation Summary The left ventricular ejection fraction is preserved. There is borderline concentric left ventricular hypertrophy. The left ventricle is grossly normal size. Doppler measurements suggest impaired left ventricular relaxation, which is associated with grade I/IV or mild diastolic dysfunction Wall motion cannot be accurately commented on, but no definite regional wall motion abnormalities noted. The right ventricle is normal in size, thickness and function The right ventricular systolic function is normal. The right atrium is normal. The left atrial size is normal. There is no mitral valve stenosis. There is a trace amount of mitral regurgitation There is no aortic valve stenosis There is a trace to mild amount of aortic regurgitation There is no pericardial effusion. MMode/2D Measurements \T\ Calculations RVDd: 2.3 cm LVIDd: 5.1 cm FS: 31.0 % Ao root diam: 2.8 cm IVSd: 0.98 cm LVIDs: 3.5 cm EDV(Teich): 121.6 ml LVPWd: 1.0 cm ESV(Teich): 50.7 ml Ao root area: 6.2 cm2 EF(Teich): 58.3 % LA dimension: 3.5 cm Doppler Measurements \T\ Calculations MV E max ziggy: MV P1/2t max ziggy: Ao V2 max: AI max ziggy: 56.8 cm/sec 56.8 cm/sec 150.7 cm/sec 417.0 cm/sec MV A max ziggy: MV P1/2t: 71.4 msec Ao max PG: AI max P.9 cm/sec 9.1 mmHg 69.6 mmHg MV E/A: 0.69 MVA(P1/2t): 3.1 cm2 AI dec slope: MV dec slope: 232.9 cm/sec2 206.7 cm/sec2 MV dec time: AI P1/2t: 0.22 sec 590.8 msec LV V1 max PG: PA V2 max: 8.1 mmHg 84.4 cm/sec LV V1 max: PA max P.8 mmHg 142.6 cm/sec Left Ventricle The left ventricle is grossly normal size. There is borderline concentric left ventricular hypertrophy. The left ventricular ejection fraction is preserved. Doppler measurements suggest impaired left ventricular relaxation, which is associated with grade I/IV or mild diastolic dysfunction. Wall motion cannot be accurately commented on, but no definite regional wall motion abnormalities noted. Right Ventricle The right ventricle is normal in size, thickness and function. There is normal right ventricular wall thickness. The right ventricular systolic function is normal. Atria The right atrium is normal. The left atrial size is normal. Interarterial septum not well visualized and not well dopplered. Cannot comment on ASD/PFO presence. Mitral Valve The mitral valve is grossly normal. There is no mitral valve stenosis. There is a trace amount of mitral regurgitation. Aortic Valve The aortic valve is grossly normal. There is no aortic valve stenosis. There is a trace to mild amount of aortic regurgitation. Tricuspid Valve The tricuspid valve is not well visualized secondary to technical limitations. There is no tricuspid stenosis. There is a trace or physiologic amount of tricuspid regurgitation. Tricuspid regurgitation jet envelope not well defined to measure RV systolic pressure accurately. Pulmonic Valve The pulmonic valve is not well visualized. Great Vessels The aortic root is not well visualized. The inferior vena cava was not visualized. Effusions There is no pericardial effusion. : GOLDEN MCNAIR > Golden Mcnair
--- NOTE | 2016-09-24 12:37 | Progress Note ---
Provider Note Provider Note: When to reassess patient, she was just returning from the CT scanner for a stat head CT. I reassessed her pupils and her responsiveness. She seemed to have unchanged dilated pupils, but continued to have a conjugate gaze and look at me appropriately when spoken to and asked to open her eyes 3 or 4 times. This did not seem to be significantly different to me. Abdomen remained distended and mild to moderately tender, but no peritoneal signs. Spoke to her , he could not definitively say she does not have chronic dilated pupils, but he did not think so. Asked by the hospitalist to attempt an arterial line. Consent obtained from the .
[2016-09-24] MEDS ORDERED: VANCOMYCIN HCL 0 MG in DEXTROSE 5%-WATER 250 ML IV NR (13:30)
--- NOTE | 2016-09-24 14:10 | PDOC TRANSFER SUMMARY ---
General Admission Date/PCP: 09/24/16 07:48 Accepting Facility: [facility] Accepting Physician: Dr. Christopher Resuscitation Status: Full Code - Transfer Diagnosis (1) Respiratory failure requiring intubation Is this a current diagnosis for this admission?: Yes (2) Septic shock Is this a current diagnosis for this admission?: YesDiagnosis Summary: Most likely secondary to a urinary tract infection. Patient does have gallstones present but no evidence for cholangitis. (3) UTI (urinary tract infection) Is this a current diagnosis for this admission?: YesDiagnosis Summary: Current being treated with vancomycin and Zosyn. (4) Elevated liver enzymes Is this a current diagnosis for this admission?: Yes (5) Emphysema of lung Is this a current diagnosis for this admission?: Yes (6) Gallstones Is this a current diagnosis for this admission?: YesDiagnosis Summary: Patient has a slightly elevated bilirubin but no evidence for cholangitis. (7) COPD (chronic obstructive pulmonary disease) Is this a current diagnosis for this admission?: Yes (8) Elevated troponin level Is this a current diagnosis for this admission?: YesDiagnosis Summary: Most likely secondary to underlying septic shock and hypotension. Cardiology has evaluated the patient and an echocardiogram shows normal ejection fraction and no wall motion abnormalities. - Transfer Medications Transfer Medications: Current Medications Albuterol/Ipratropium (Duoneb 3 Ml Ampul) 3 ml NEB RTQ6 [facility] Stop: 10/24/16 07:59 Last Admin: 09/24/16 13:43 Dose: 3 ml Famotidine (Pepcid Inj/Pf 20 Mg/2 Ml Sdv) 10 mg IV Q12 [facility] Stop: 10/24/16 09:59 Heparin Sodium (Porcine) (Heparin Inj 5,000 Units/Ml 1 Ml Syringe) 5,000 unit SUBCUT Q12 [facility] Stop: 10/24/16 09:59 Norepinephrine Bitartrate 4 mg (/ Dextrose) 254 mls @ 0 mls/hr IV CONTINUOUS PRN; Protocol; Titrate PRN Reason: THIS MED IS NOT "PRN" Stop: 10/24/16 07:48 Sodium Chloride (Nacl 0.9% 1000 Ml Iv Soln) 1,000 mls @ 400 mls/hr IV CONTINUOUS PRN PRN Reason: THIS MED IS NOT "PRN" Stop: 10/24/16 07:47 Piperacillin Sod/Tazobactam (Sod 2.25 gm/ Sodium Chloride) 50 mls @ 100 mls/hr IV Q6 [facility] Stop: 10/01/16 11:59 Midazolam HCl (Versed Rtu 50 Mg/100 Ml Premix Bag) 100 mls @ 0 mls/hr IV CONTINUOUS PRN; Protocol; Titrate PRN Reason: THIS MED IS NOT "PRN" Stop: 10/01/16 08:22 Last Admin: 09/24/16 08:50 Dose: 100 ml Propofol (Diprivan Rtu 1000 Mg/100 Ml Inf.Bottle) 100 mls @ 0 mls/hr IV CONTINUOUS PRN; Protocol; Titrate PRN Reason: THIS MED IS NOT "PRN" Stop: 10/24/16 10:38 Hard Fat/Phenylephrine 40 mg/ (Dextrose) 250 mls @ 0 mls/hr IV CONTINUOUS PRN; Protocol; Titrate PRN Reason: THIS MED IS NOT "PRN" Stop: 10/24/16 12:30 Vancomycin HCl / Dextrose 250 mls @ 0 mls/hr IV .PHARMACY TO DOSE NR PRN Reason: As Directed Stop: 10/01/16 13:29 Pantoprazole Sodium (Protonix Iv Inj 40 Mg Vial) 40 mg IV Q12 [facility] Stop: 09/27/16 09:59 Pharmacy Profile Note (Medication Communication Order) 1 each .DOSE ADJUST [facility] Stop: 10/24/16 07:44 Sodium Chloride (Saline Flush 2.5 Ml Monoject Prefil Syrin) 2.5 ml IV Q8 [facility] Stop: 10/24/16 13:59 - Allergies Allergies/Adverse Reactions: Sulfa (Sulfonamide Antibiotics) Allergy (Verified 09/23/16 22:32) - Diet/Activity Discharge Diet: Other (Comments) - Nothing by mouth Discharge Activity: Bedrest Hospital Course Hospital Course: 66-year-old female who is from out of town visiting family who presented with a three-day history of nausea vomiting and diarrhea. Patient presented was found to have acute renal failure along with hypotension. She was noted to have a fever but also normal white count. Patient was found to have urinary tract infection and was started on Zosyn. The patient was given IV fluids and continued to have hypotension and she came tachypnea. Because of her hypotension and tachypnea she was intubated. Patient was started on levophed and then Giovanni-Synephrine was added on after that. Vancomycin was added onto her therapy because of her worsening clinical state. The patient is acidotic most likely lactic acidosis from her underlying sepsis. The patient had an abdominal CT and was found to have gallstones but no biliary dilatation. Her bilirubin was up slightly. Because of this surgery was consulted and they felt that she did not have a surgical abdomen and recommended empiric antibiotics. The patient was noted to have some dilated pupils in spite of being on Versed. She has a history of an intracranial hemorrhage because of an aneurysm rupture. Because of this she underwent a head CT which showed no acute event. The patient has continued to be acidotic despite of a respiratory rate of 24 on the ventilator. Because of this critical care consultation is required. We currently do not have critical care consultation available at this facility. Because the lack of critical care consultation [facility] was contacted and Dr. Christopher graciously agrees to accept this patient in transfer. The patient is on levophed, Giovanni-Synephrine for blood pressure support in addition to lactated Ringer's at 200 mL per hour. The patient is on vancomycin and Zosyn for antibiotic coverage and is currently on pressure regulated volume control ventilator with tidal volume of 500, respiratory rate 24 with a PEEP of 5. The patient was noted have an increase in the troponins and cardiology was consulted. It's felt this most likely secondary to her hypotension and sepsis. An echocardiogram was done and shows no obvious wall motion antibiotics with a normal ejection fraction Physical Exam Vital Signs: Temp Pulse Resp BP Pulse Ox 100.9 F H 107 H 36 H 98/64 L 100 09/24/16 12:00 09/24/16 12:00 09/24/16 12:00 09/24/16 12:09/24/16 12:00 Intake & Output 09/23/16 09/24/16 09/25/16 06:59 06:59 06:59 Output Total 125 Balance -125 General appearance: PRESENT: well-developed, well-nourished Head exam: PRESENT: atraumatic, normocephalic Eye exam: PRESENT: conjunctiva pink. ABSENT: scleral icterus Ear exam: PRESENT: normal external ear exam Mouth exam: PRESENT: moist, tongue midline, other - ET tube is present Neck exam: ABSENT: carotid bruit, JVD, lymphadenopathy, thyromegaly Respiratory exam: PRESENT: clear to auscultation poli. ABSENT: rales, rhonchi, wheezes Cardiovascular exam: PRESENT: tachycardia. ABSENT: diastolic murmur, rubs, systolic murmur GI/Abdominal exam: PRESENT: normal bowel sounds, soft. ABSENT: distended, guarding, mass, organolmegaly, rebound, tenderness Rectal exam: PRESENT: heme (-) stool Extremities exam: PRESENT: full ROM. ABSENT: calf tenderness, clubbing, pedal edema Neurological exam: PRESENT: other - Sedated and intubated Psychiatric exam: PRESENT: other - Unable to assess Skin exam: PRESENT: dry, intact, warm. ABSENT: cyanosis, rash Results Laboratory Results: 09/24/16 08:14 09/24/16 08:14 09/24/16 09/24/16 09/24/16 08:14 08:14 08:14 WBC 3.7 L RBC 4.65 Hgb 9.5 L Hct 32.8 L MCV 71 L MCH 20.4 L MCHC 28.9 L RDW 19.1 H Plt Count 235 Seg Neutrophils % 61.7 Lymphocytes % 32.6 Monocytes % 5.0 Eosinophils % 0.5 Basophils % 0.2 Absolute Neutrophils 2.3 Absolute Lymphocytes 1.2 Absolute Monocytes 0.2 Absolute Eosinophils 0.0 Absolute Basophils 0.0 Carbonic Acid HCO3/H2CO3 Ratio ABG pH ABG pCO2 ABG pO2 ABG HCO3 ABG O2 Saturation ABG Base Excess FiO2 Sodium 145.6 H Potassium 4.1 Chloride 117 H Carbon Dioxide 11 L Anion Gap 18 BUN 64 H Creatinine 3.07 H Est GFR ( Amer) 18 L Est GFR (Non-Af Amer) 15 L Glucose 108 Calcium 7.5 L Triglycerides 165 H 09/24/16 10:37 WBC RBC Hgb Hct MCV MCH MCHC RDW Plt Count Seg Neutrophils % Lymphocytes % Monocytes % Eosinophils % Basophils % Absolute Neutrophils Absolute Lymphocytes Absolute Monocytes Absolute Eosinophils Absolute Basophils Carbonic Acid 0.64 L HCO3/H2CO3 Ratio 14:1 ABG pH 7.26 L ABG pCO2 21.2 L ABG pO2 332.0 H ABG HCO3 9.3 L ABG O2 Saturation 99.7 H ABG Base Excess -16.1 FiO2 90% Sodium Potassium Chloride Carbon Dioxide Anion Gap BUN Creatinine Est GFR ( Amer) Est GFR (Non-Af Amer) Glucose Calcium Triglycerides 09/24/16 09/24/16 08:14 08:14 Creatine Kinase 455 H CK-MB (CK-2) 20.20 H Troponin I 0.146 Impressions: Limited or Localized CT 09/23/16 21:32 IMPRESSION: 1. PROMINENT STOOL IN THE RECTUM AND PROMINENT FLUID THROUGHOUT THE COLON. FINDINGS COULD BE INDICATIVE OF A FECAL IMPACTION. 2. GALLSTONES. 3. NO OTHER SIGNIFICANT OR ACUTE PROCESS IN THE ABDOMEN OR PELVIS. Chest X-Ray 09/24/16 05:56 IMPRESSION: Tubes and lines in good positioning Pulmonary vascular prominence with increased interstitial markings from fluid overload or congestive failure Head CT 09/24/16 11:02 IMPRESSION: Prior aneurysm repair. No acute findings. Status: Image reviewed by me Plan Discharge Plan: Patient will be transferred to [facility] Dr. Christopher is the accepting physician. Time Spent: Greater than 30 Minutes
[2016-09-24] MEDS ORDERED: RINGERS SOLUTION,LACTATED 1,000 ML IV PRN (14:47)
[2016-09-24] MEDS ORDERED: VANCOMYCIN HCL 750 MG in DEXTROSE 5%-WATER 250 ML IV ONE (15:30)
[2016-09-24] MEDS ORDERED: RINGERS SOLUTION,LACTATED 500 ML IV ONE (16:00)
[2016-09-24] MEDS ORDERED: VANCOMYCIN HCL 750 MG in DEXTROSE 5%-WATER 250 ML IV SCH (18:00)
--- NOTE | 2016-09-24 20:12 | PDOC CONSULTATION ---
Consultation Consult Date: 09/24/16 Attending physician:: EDMUNDO RICCI Consult reason:: Hypotension, abnormal cardiac enzymes History of Present Illness Admission Date/PCP: 09/24/16 07:48 Patient complains of: Patient intubated and sedated History of Present Illness: 66-year-old female, with underlying asthma, COPD, obstructive sleep apnea, on CPAP for same, hyperlipidemia, mild anxiety and depression, without suicidal or homicidal ideation, arthritis, and esophageal reflux disease, along with history marianna holes, 2013, for ruptured intracerebral aneurysm, who presents to the emergency room for evaluation of a 2 to three-day history of progressive nausea vomiting, diarrhea and abdominal pain. Patient is intubated and is able to provide no history whatsoever in terms of acute or chronic events, review of systems, personal habits, family history, etc. is present and is helpful in informative. No old inpatient records available for review; patient has never been to this hospital before. Patient and are down from [place] visiting their son who is about to deploy in the [employer]. Had a democrat for their son on Friday. Following day patient was fine, but when returned from seeing his son off on Friday, patient was complaining of nausea and vomiting. On Friday, nausea and vomiting worsened, along with onset of diarrhea and diffuse abdominal pain. No prior such episodes. No unusual oral intake. No friends or family with similar complaints. No fever or chills or dysuria. No history of C. difficile. No antibiotic use. Patient initially seemed to improve in the emergency room with IV fluids. However, she began to worsen clinically and when repeat labs revealed multiple worsening values, including BUN and creatinine, along with liver functions and prominent acidosis noted on blood gas, patient was intubated. Levophed has been started. Patient subsequently noted to have abnormal elevation of total CK, CK-MB and also troponin I. EKGs were repeated but there were no significant ST-T wave changes. A 2-D echo was performed which showed relatively well-preserved LVEF. I was asked to evaluate patient and help in management. I did recommend transfer to tertiary care as patient seems to be in severe septic shock and acidosis. . Past Medical History Cardiac Medical History: Reports: Hyperlipidema, Hypertension Denies: Atrial Fibrillation, Congestive Heart Failure, DVT, Myocardial Infarction, Pulmonary Embolism Pulmonary Medical History: Reports: Asthma, Chronic Obstructive Pulmonary Disease (COPD), Sleep Apnea - On CPAP for same EENT Medical History: Reports: Eyes - Glasses Denies: Ears, Throat Neurological Medical History: Reports: Other - Bur holes placed for ruptured intracerebral aneurysm, 2013. Denies: Hemorrhagic CVA, Ischemic CVA, Seizures Endocrine Medical History: Denies: Diabetes Mellitus Type 1, Diabetes Mellitus Type 2, Hyperthyroidism, Hypothyroidism Renal/ Medical History: Reports: None Malignancy Medical History: Reports: Skin Cancer - Melanoma, status post left groin lymphadenectomy, 1998. GI Medical History: Reports: Gastroesophageal Reflux Disease Denies: Cirrhosis, Hepatitis Musculoskeltal Medical History: Reports: Arthritis Skin Medical History: Reports: Other - History of melanoma, left lower extremity Psychiatric Medical History: Reports: Depression, General Anxiety Disorder Denies: Alcohol Dependency, Substance Abuse, Tobacco Dependency Hematology: Reports: None Infectious Medical History: Denies: Clostridium Difficile, Hepatitis B, Hepatitis C, Methicillin- Resistant Staph Aureus Past Surgical History Past Surgical History: Reports: Other - groin lymphadenectomy, for melanoma, leg. marianna holes, 2013, [facility] Social History Information Source: Relative Lives with: Spouse/Significant other Smoking Status: Former Smoker Frequency of Alcohol Use: Occasional Hx Recreational Drug Use: No Drugs: None Hx Prescription Drug Abuse: No - Advance Directive Resuscitation Status: Full Code Surrogate healthcare decision maker:: Patient's spouse Family History Family History: Reviewed & Not Pertinent, Other - Congestive heart failure Parental Family History Reviewed: Yes Children Family History Reviewed: Yes Sibling(s) Family History Reviewed.: Yes - Negative for premature coronary artery disease or sudden cardiac in the family amongst first degree relatives. Medication/Allergy Allergies/Adverse Reactions: Sulfa (Sulfonamide Antibiotics) Allergy (Verified 09/23/16 22:32) Review of Systems ROS unobtainable: Due to endotracheal tube Physical Exam Vital Signs: Temp Pulse Resp BP Pulse Ox 100.8 F H 110 H 30 H 125/74 89 L 09/24/16 17:36 09/24/16 16:41 09/24/16 17:49 09/24/16 17:49 09/24/16 16:41 Intake & Output 09/23/16 09/24/16 09/25/16 06:59 06:59 06:59 Intake Total 3981 Output Total 285 Balance 3696 Exam: GENERAL: well-nourished and in no acute distress. Patient is intubated and sedated. Orientation cannot be checked HEAD: Atraumatic, normocephalic. EYES: Pupils equal round and reactive to light, extraocular movements could not be checked, sclera anicteric, conjunctiva are normal. ENT: TMs normal, nares patent, oropharynx clear without exudates. Moist mucous membranes. No oral ulcerations or bleeding gums noted NECK: supple without lymphadenopathy or JVD. Trachea is central. No cervical or axillary lymphadenopathy noted. Carotids are 2+ LUNGS: Breath sounds mostly clear to auscultation patient is noted to have bibasal crackles at the extreme bases CHEST: Palpation of the chest wall shows no significant chest wall tenderness or abnormalities. HEART: [place] [employer], No PSH, 2/6 ALIZA aortic area, 1/6 blanchard systolic murmur mitral area , no rubs or gallops. ABDOMEN: Soft, no significant tenderness appreciated, normoactive bowel sounds. No guarding, no rebound. No rigidity noted . No masses appreciated. EXTREMITIES: Pedal pulses are 1-2+, no calf tenderness noted, 1+ pedal edema noted. No clubbing or cyanosis. NEUROLOGICAL: The patient cannot participate in the neurological exam but no facial asymmetry noted. Extremities slightly hypotonic PSYCH: This cannot be evaluated. Patient cannot participate. SKIN: No significant ecchymosis, rash, or signs of pruritus noted. MUSCULOSKELETAL EXAM: No significant joint swelling noted. Patient cannot participate in musculoskeletal exam Results Laboratory Results: 09/24/16 08:14 09/24/16 08:14 09/24/16 09/24/16 09/24/16 08:14 08:14 08:14 WBC 3.7 L RBC 4.65 Hgb 9.5 L Hct 32.8 L MCV 71 L MCH 20.4 L MCHC 28.9 L RDW 19.1 H Plt Count 235 Seg Neutrophils % 61.7 Lymphocytes % 32.6 Monocytes % 5.0 Eosinophils % 0.5 Basophils % 0.2 Absolute Neutrophils 2.3 Absolute Lymphocytes 1.2 Absolute Monocytes 0.2 Absolute Eosinophils 0.0 Absolute Basophils 0.0 Carbonic Acid HCO3/H2CO3 Ratio ABG pH ABG pCO2 ABG pO2 ABG HCO3 ABG O2 Saturation ABG Base Excess FiO2 Sodium 145.6 H Potassium 4.1 Chloride 117 H Carbon Dioxide 11 L Anion Gap 18 BUN 64 H Creatinine 3.07 H Est GFR ( Amer) 18 L Est GFR (Non-Af Amer) 15 L Glucose 108 Lactic Acid Calcium 7.5 L Triglycerides 165 H 09/24/16 09/24/16 10:37 14:45 WBC RBC Hgb Hct MCV MCH MCHC RDW Plt Count Seg Neutrophils % Lymphocytes % Monocytes % Eosinophils % Basophils % Absolute Neutrophils Absolute Lymphocytes Absolute Monocytes Absolute Eosinophils Absolute Basophils Carbonic Acid 0.64 L HCO3/H2CO3 Ratio 14:1 ABG pH 7.26 L ABG pCO2 21.2 L ABG pO2 332.0 H ABG HCO3 9.3 L ABG O2 Saturation 99.7 H ABG Base Excess -16.1 FiO2 90% Sodium Potassium Chloride Carbon Dioxide Anion Gap BUN Creatinine Est GFR ( Amer) Est GFR (Non-Af Amer) Glucose Lactic Acid 8.1 H Calcium Triglycerides 09/24/16 09/24/16 08:14 08:14 Creatine Kinase 455 H CK-MB (CK-2) 20.20 H Troponin I 0.146 EKG Comments: Sinus rhythm with minor nonspecific ST-T wave changes. Impressions: Limited or Localized CT 09/23/16 21:32 IMPRESSION: 1. PROMINENT STOOL IN THE RECTUM AND PROMINENT FLUID THROUGHOUT THE COLON. FINDINGS COULD BE INDICATIVE OF A FECAL IMPACTION. 2. GALLSTONES. 3. NO OTHER SIGNIFICANT OR ACUTE PROCESS IN THE ABDOMEN OR PELVIS. KUB X-Ray 09/24/16 00:00 IMPRESSION: NG tube in the stomach. Chest X-Ray 09/24/16 05:56 IMPRESSION: Tubes and lines in good positioning Pulmonary vascular prominence with increased interstitial markings from fluid overload or congestive failure Head CT 09/24/16 11:02 IMPRESSION: Prior aneurysm repair. No acute findings. Assessment & Plan - Diagnosis (1) Septic shock Is this a current diagnosis for this admission?: Yes (2) Acute renal failure Qualifiers: Acute renal failure type: unspecified Qualified Code(s): N17.9 - Acute kidney failure, unspecified Is this a current diagnosis for this admission?: Yes (3) Acute respiratory failure Qualifiers: Respiratory failure complication: unspecified whether with hypoxia or hypercapnia Qualified Code(s): J96.00 - Acute respiratory failure, unspecified whether with hypoxia or hypercapnia Is this a current diagnosis for this admission?: Yes (4) Elevated liver enzymes Is this a current diagnosis for this admission?: Yes (5) Elevated troponin level Is this a current diagnosis for this admission?: Yes (6) Hypotension Qualifiers: Hypotension type: unspecified hypotension type Qualified Code(s): I95.9 - Hypotension, unspecified - Notes Notes: Patient noted to be in shock. This is mostly septic shock. Patient has cool periphery. Patient has severe acidosis, elevated lactate level. At this point recommend IV fluid boluses and continue with vasopressors. Have recommended transfer to tertiary care. Acute renal failure: Patient has significantly elevated creatinine and BUN. Acute respiratory failure: Patient is intubated. She is maintaining oxygenation but remains very acidotic. Elevated liver enzymes: Probably part of septic shock. Troponin I elevation: Patient does not seem to have any significant ST-T wave changes. These amount of elevation is most likely related to septic shock. Hypotension: Related to septic shock. Continue with IV fluid boluses and vasopressors. Overall prognosis is guarded. Recommend patient be transferred to tertiary care for further management. This was discussed with hospitalist. He indeed in fact talked with tertiary care trainer and in process of transferring the patient. Patient was seen multiple times. 2-D echo and EKGs were reviewed. Prognosis discussed with family members and hospitalist. 2-D echo shows relatively well- preserved LVEF. I'm afraid that patient may be going into a reversible septic shock. - Time Time Spent: 50 to 70 Minutes - CODE STATUS was discussed, patient remains full code. Surrogate decision-maker unchanged. Multiple medical problems were addressed.More than 50% of the time spent coordinating care, discussing management plans with involved caregivers. Management plans discussed with involved personnels. Medical decision making was of high complexity. Patient critically ill Medications reviewed and adjusted accordingly: Yes
[2016-09-24 20:28] VITALS: BP 108/96
--- NOTE | 2016-09-24 23:55 | EKG REPORT ---
SEVERITY:- BORDERLINE ECG - SINUS TACHYCARDIA BORDERLINE T ABNORMALITIES, LATERAL LEADS : Confirmed by: Golden Rojas 24-Sep-2016 23:55:09
--- NOTE | 2016-09-25 09:35 | Progress Note ---
Provider Note Provider Note: Late entry: Attempted art line placement note. Around 1 pm on 09/24/16, after timeout, placement of left radial artery arterial line was attempted under sterile conditions. Gowns and masks were on provider. Mask was on who remained in room. Prepped and draped left wrist. Small amount of 1% of lidocaine was infiltrated into the skin. Ultrasound failed to identify an artery with pulsatile motion, but identified what may have been the artery and vein bundle. Attempts to place line under US guidance were unsuccessful. A handheld doppler was used and intermittently yielded a weak signal in the appropriate location. Again attempts were unsuccessful. Dressing was placed. Dr Deutsch, the patient's and I spoke. Given the patients continued failure to repsond to resuscitation and limited resources available, I recommended immediate transfer as did Dr Deutsch. agreed. Dr Deutsch arranged transfer.
[2016-09-25] MEDS ORDERED: VANCOMYCIN HCL 750 MG in DEXTROSE 5%-WATER 250 ML IV SCH (18:00)
== END 2016-09-24 18:22 | disposition short-term general hospital (02) | DRG 871 ==
LOC: ER 19:56 → EH 09-24 04:00 → UNDOADMIN 09-24 04:00 → EH 09-24 07:48 → ICU 09-24 09:27
PROVIDERS: ADMIT Family Medicine; ATTEND Family Medicine
PROC: 0BH17EZ Insertion of Endotracheal Airway into Trachea, Via Natural or Artificial Opening (ICD-10-PCS; principal; 2016-09-24)
PROC: 5A1935Z Respiratory Ventilation, Less than 24 Consecutive Hours (ICD-10-PCS; 2016-09-24)
PROC: 3E043XZ Introduction of Vasopressor into Central Vein, Percutaneous Approach (ICD-10-PCS; 2016-09-24)
PROC: 0D9670Z Drainage of Stomach with Drainage Device, Via Natural or Artificial Opening (ICD-10-PCS; 2016-09-24)
PROC: 02H633Z Insertion of Infusion Device into Right Atrium, Percutaneous Approach (ICD-10-PCS; 2016-09-24)
DX: A41.9 Sepsis, unspecified organism (principal); J96.00 Acute respiratory failure, unspecified whether with hypoxia or hypercapnia; R65.21 Severe sepsis with septic shock; N17.9 Acute kidney failure, unspecified; N39.0 Urinary tract infection, site not specified; E87.2 Acidosis; R19.7 Diarrhea, unspecified; R10.84 Generalized abdominal pain; J43.9 Emphysema, unspecified; J45.909 Unspecified asthma, uncomplicated; R74.8 Abnormal levels of other serum enzymes; K80.80 Other cholelithiasis without obstruction; G47.33 Obstructive sleep apnea (adult) (pediatric); Z88.2 Allergy status to sulfonamides; Z87.891 Personal history of nicotine dependence
CPT/HCPCS: 36415; 51701; 70450; 71010; 74000; 76380; 80048; 80053; 81001; 82272; 82533; 82550; 82553; 82803; 83605; 83690; 83735; 84100; 84478; 84484; 85025; 85610; 85730; 87040; 87045; 87077; 87086; 87186; 87205; 87493; 89055; 93005; 93010; 93306; 94002; 94640; 94660; 96361; 96374; 96375; 99291; 99292; C1751; J0330; J1644; J2250; J2270; J2370; J2405; J2543; J3010; J3370; J3490; J7030; J7060; J7120; J7620; S0028; S0164